=== PATIENT | female | born 1995 | race Caucasian/White ===

== ENCOUNTER 2017-01-20 22:31 | Emergency (ER) | payer OTHER ==
[~2017-01-20] VITALS: Ht 162.6 cm; Wt 67.5 kg
[~2017-01-20 22:31] MED LIST: BIRTH CONTROL PILL; CHEWABLE MULTI1 EACH PO; FLEXERIL10 MG PO; IBUPROFEN200 M1 PO; IBUPROFEN800 MG PO; JUNEL1 EAC1 PO; LEXAPRO10 MG; MULTIPLE VITAM1 EAC1 PO; NAPROSYN500 MG PO; PRENATAL TABLE1 EAC3 PO; PROZAC20 MG PO; ULTRAM50 MG PO; VENTOLIN HFA18 GM IH; ZANTAC150 MG PO; ZYRTEC10 M3 PO
[2017-01-20 23:29] LABS: HEMATOCRIT 39.6 % (36.0-46.0); MCH 29.5 PG (29.0-34.0); MCHC 33.3 G/DL (30.0-36.0); MCV 88.4 FL (83-99); MEAN PLAT.VOLUME 11.5 uM^3 (9.5-12.4); PLATELET COUNT 190 K/uL (156-360); RBC DIS.WIDTH-CV 12.1 % (11.8-14.6); RBC DIS.WIDTH-SD 39.2 % (39-53); RED BLOOD COUNT 4.48 M/uL (3.80-5.20); WHITE BLOOD COUNT 8.6 K/uL (4.1-10.2)
[2017-01-20 23:39] LABS: CHLORIDE 105 mEq/L (99-109); POTASSIUM 3.9 mEq/L (3.7-5.4); SODIUM 139 mEq/L (136-147)
[2017-01-20 23:40] LABS: GLUCOSE 87 mg/dL (70-99)
[2017-01-20 23:42] LABS: ANION GAP 8 MEQ/L (2-14)
[2017-01-20 23:44] LABS: GFR ESTIMATE (CALCULATED) > 59 mL/min/
[2017-01-20 23:45] LABS: UREA NITROGEN (BUN) 9 mg/dL (9-23)
[2017-01-21 00:33] VITALS: BP 122/90
[2017-01-21 09:49] LABS: LYME DISEASE SEROLOGY SCREEN NEGATIVE (NEGATIVE)
== END 2017-01-21 00:36 | disposition home or self-care (01) ==
LOC: EME 22:31 → EXP 22:31
PROVIDERS: Physician Assistant
DX: R55 Syncope and collapse (principal)
CPT/HCPCS: 71020; 80048; 85027; 86618; 93005; 99281; 99284; J8540

== ENCOUNTER 2017-03-25 18:46 | Emergency (ER) | payer OTHER ==
[~2017-03-25] VITALS: Ht 162.6 cm; Wt 62.0 kg
[2017-03-25] MEDS ORDERED: VALIUM2 MG PO (22:03)
[2017-03-25] MEDS ORDERED: MOTRIN800 MG PO (22:03)
[2017-03-25] MEDS ORDERED: NORCO 10/3251 TABLET PO (22:03)
[2017-03-25 22:44] VITALS: BP 00/0
== END 2017-03-25 22:45 | disposition home or self-care (01) ==
LOC: EME 18:46 → RME 18:46
DX: S16.1XXA Strain of muscle, fascia and tendon at neck level, initial encounter (principal); S39.012A Strain of muscle, fascia and tendon of lower back, initial encounter; V89.2XXA Person injured in unspecified motor-vehicle accident, traffic, initial encounter; Y92.410 Unspecified street and highway as the place of occurrence of the external cause; M54.12 Radiculopathy, cervical region; J45.909 Unspecified asthma, uncomplicated; K21.9 Gastro-esophageal reflux disease without esophagitis; F41.9 Anxiety disorder, unspecified
CPT/HCPCS: 72100; 72125; 73502; 99281; 99284; J3010

== ENCOUNTER 2017-08-27 10:50 | Emergency (ER) | payer OTHER ==
[~2017-08-27] VITALS: Ht 162.6 cm; Wt 63.6 kg
[~2017-08-27 10:50] MED LIST changes: +MOTRIN800 MG PO; +NORCO 10/3251 TABLET PO; +VALIUM2 MG PO
[2017-08-27 12:01] LABS: HEMATOCRIT 41.7 % (36.0-46.0); HEMOGLOBIN 14.4 G/DL (11.9-15.5); MCH 30.4 PG (29.0-34.0); MCHC 34.5 G/DL (30.0-36.0); MCV 88.2 FL (83-99); PLATELET COUNT 207 K/uL (156-360); RED BLOOD COUNT 4.73 M/uL (3.80-5.20); WHITE BLOOD COUNT 4.4 K/uL (4.1-10.2)
[2017-08-27 12:10] LABS: ALBUMIN 4.6 g/dL (3.2-4.8); CHLORIDE 111 mEq/L (99-109); POTASSIUM 3.9 mEq/L (3.7-5.4); SODIUM 142 mEq/L (136-147)
[2017-08-27 12:12] LABS: GLUCOSE 85 mg/dL (70-99); TOTAL PROTEIN 7.5 g/dL (6.4-8.3)
[2017-08-27 12:14] LABS: TOTAL BILIRUBIN 1.6 mg/dL (0.0-1.0)
[2017-08-27 12:16] LABS: ALKALINE PHOSPHATASE 63 IU/L (3-129); CREATININE 0.8 mg/dL (0.6-1.3); GFR ESTIMATE (CALCULATED) > 59 mL/min/
[2017-08-27 12:17] LABS: AST (GOT) 13 IU/L (2-34); UREA NITROGEN (BUN) 9 mg/dL (9-23)
[2017-08-27 12:19] LABS: ALT (GPT) 10 IU/L (3-49)
[2017-08-27 12:24] LABS: QUANTITATIVE HCG < 4.0 MIU/ML
[2017-08-27 13:07] LABS: APPEARANCE CLEAR ((CLEAR)); BILIRUBIN NEGATIVE; BLOOD SMALL; COLOR YELLOW ((YELLOW)); GLUCOSE (STRIP) NEGATIVE; KETONES NEGATIVE; LEUKOCYTES TRACE; NITRITE NEGATIVE; PROTEIN (STRIP) NEGATIVE
[2017-08-27 13:12] LABS: BACTERIA RARE /HPF; EPITHELIAL CELLS RARE /HPF; MUCUS 1+ /LPF; UCUL ADDED? NO; WHITE BLOOD CELLS 0-5 /HPF (0-5)
[2017-08-27] MEDS ORDERED: ZOFRAN ODT4 MG PO (14:02)
[2017-08-27] MEDS ORDERED: BACTRIM,SEPT1 TABLET PO (14:02)
[2017-08-27 14:12] VITALS: BP 112/57
== END 2017-08-27 14:19 | disposition home or self-care (01) ==
LOC: EME 10:50
DX: N39.0 Urinary tract infection, site not specified (principal); R07.9 Chest pain, unspecified; R42 Dizziness and giddiness; N89.8 Other specified noninflammatory disorders of vagina; N20.0 Calculus of kidney; Z45.89 Encounter for adjustment and management of other implanted devices
CPT/HCPCS: 74177; 80053; 81003; 84702; 85027; 93005; 99281; 99284; J1885; J2405; J7030